=== PATIENT | female | born 1995 | race Caucasian/White ===

== ENCOUNTER 2017-06-09 20:58 | Emergency (ER) | payer BC, MEDICAID ==
[~2017-06-09] VITALS: Ht 172.7 cm; Wt 118.0 kg
[2017-06-09 22:00] VITALS: BP 132/74
== END 2017-06-10 02:39 | disposition left against medical advice (07) ==
LOC: ER 20:58
DX: Z53.21 Procedure and treatment not carried out due to patient leaving prior to being seen by health care provider (principal)